=== PATIENT | female | born 1945 | race Caucasian/White ===

== ENCOUNTER → 2022-03-04 09:16 | Outpatient (BNVA) | payer MEDICARE, BC, SELFPAY | PROVIDERS: Visit Provider Orthopaedic Surgery | DX: M65.331 Trigger finger, right middle finger (principal) | CPT/HCPCS: 99202 ==

== ENCOUNTER 2022-04-10 08:55 | Day surgery (SDC) | payer MEDICARE, BC, SELFPAY ==
[2022-04-10 07:10] VITALS: BMI 35.6
[2022-04-10 10:16] VITALS: BP 146/70; PULSE 75; RESP 20; TEMP 36.6; O2SAT 97
--- NOTE | 2022-04-10 10:47 | P.OP_ITS ---
Operative Note Operative Note Date of Service: 04/10/22 Narrative: Operative Note Preop diagnosis: 1. Right middle finger Trigger finger Postop diagnosis: 1. Right middle finger Trigger finger Procedure: 1. Right middle finger A1 everardo release Surgeon: Sabina Cramer MD Anesthesia: local block using 1% lidocaine with epinephrine Findings: No locking or catching after A1 everardo release EBL: Less than 5 mL Tourniquet time: None Specimens: None Complications: None Disposition: Brought to recovery room in stable condition Plan: Follow-up for 10-14 days for wound check and suture removal Indications: The patient is 76 years old, with a right middle finger trigger finger that has been unresponsive to nonoperative management. The risks and benefits of operative treatment including but not limited to risk of damage to blood vessels, nerves, tendons, infection, persistent pain, persistent symptoms, recurrence or possible need for additional surgery were discussed with the patient and the patient wishes to proceed with surgery. Procedure: Once consent was obtained a local block was performed in the preop area using a combination of 1% lidocaine with epinephrine. The patient was then brought back to the operating suite and placed on the operative table in supine position. The right upper extremity was prepped and draped in a standard surgical fashion. Once assured that we had a good block, a 1.5 cm oblique incision was made c entered over the A1 everardo of the right middle finger . The incision was made through the skin to the subcutaneous tissues using a #15 blade. Careful dissection was made down to the level of the A1 everardo using tenotomy scissors, with care being taken to protect the nearby neurovascular structures. A longitudinal incision was made in the A1 everardo 1st using a #15 blade, then using tenotomy scissors under direct visualization. The A1 everardo was noted to be thickened. Following our A1 everardo release, we no longer saw any locking or catching of the digit with flexion and extension. Once satisfied with our A1 everardo release the wound was copiously irrigated with normal saline and hemostasis was obtained with a brief period of local pressure. The skin edges were reapproximated with some 5.0 nylon suture material and a sterile dressing was applied. The patient appears to have tolerated the procedure well and with no complications. All digits were well vascularized at the conclusion of the case.
--- NOTE | 2022-04-10 10:47 | MHC.SHP ---
Pre-Procedural Eval Section A Date of Service: 04/10/22 The patient is an INPATIENT: No Changes since office visit: No Cold of Flu in the past 2 weeks, No New Medical Problems, No Changes in Medication and No Patient answered all questions The History & Physical has been completed within 30 days and I have reviewed it.: Yes Section B Chief Complaint: Trigger finger, right middle finger Allergies: Allergies Allergy/AdvReac Type Severity Reaction Status Date / Time penicillin G Allergy Mild eyelids Verified 03/04/22 09:29 havens Plan I have reviewed the history and physical and performed a pertinent physical examination on my patient. No changes have occurred unless specified. Time Spent With Patient Time: Total time managing care of this patient today ____ minutes.
[2022-04-10 12:05] VITALS: BP 148/71; PULSE 70; RESP 16; TEMP 36.6; O2SAT 98
== END 2022-04-10 12:12 | disposition home or self-care (01) ==
PROVIDERS: PCP Internal Medicine; Visit Provider Orthopaedic Surgery
PROC: (CPT 26055; principal; 2022-04-10 12:00)
DX: M65.331 Trigger finger, right middle finger (principal)
CPT/HCPCS: 26055; J0171

== ENCOUNTER → 2022-04-22 09:19 | Outpatient (BNVA) | payer MEDICARE, BC, SELFPAY | PROVIDERS: PCP Internal Medicine; Visit Provider Orthopaedic Surgery | DX: M65.331 Trigger finger, right middle finger (principal) | CPT/HCPCS: 99212 ==